=== PATIENT | male | born 1965 | race Two or more races ===

== ENCOUNTER 2022-05-21 16:29 | Emergency (ER) | payer MEDICAID ==
[~2022-05-21] VITALS: Ht 177.8 cm; Wt 140.6 kg
[2022-05-21 16:31] VITALS: BP 120/89
== END 2022-05-21 16:31 | disposition left against medical advice (07) ==
LOC: ER 16:29
DX: R07.9 Chest pain, unspecified (principal); Z53.21 Procedure and treatment not carried out due to patient leaving prior to being seen by health care provider
CPT/HCPCS: 93005